=== PATIENT | female | born 2000 | race Caucasian/White ===

== ENCOUNTER → 2023-07-01 12:02 | Outpatient (CLI) | payer BC, SELFPAY ==
[2023-07-01 12:48] LABS: Influenza A - CEPHEID Flu A NEGATIVE (NEGATIVE); Influenza B - CEPHEID Flu B NEGATIVE (NEGATIVE); Respiratory Syncytial Virus Negative (Negative)
[2023-07-01 12:57] LABS: COVID-19 CEPHEID 4-PLEX PCR Negative (Negative)
== END ==
PROVIDERS: PCP Family Medicine; Visit Provider Nurse Practitioner Family
DX: R50.9 Fever, unspecified (principal); J02.9 Acute pharyngitis, unspecified
CPT/HCPCS: 0241U; 87070

== ENCOUNTER → 2024-09-16 18:35 | Outpatient (CLI) | payer BC, SELFPAY | LOC: LAB 18:35 | PROVIDERS: PCP Family Medicine; Visit Provider Chiropractor | DX: N94.89 Other specified conditions associated with female genital organs and menstrual cycle (principal) | CPT/HCPCS: 87210 ==

== ENCOUNTER → 2025-01-30 09:30 | Outpatient (CLI) | payer BC, SELFPAY ==
--- NOTE | 2025-01-30 09:31 | DI.US.S_ITS ---
PROCEDURE: US PELVIC COMPLETE
== END ==
PROVIDERS: PCP Family Medicine; Referring Provider Family Medicine; Visit Provider Family Medicine
DX: T83.32XA Displacement of intrauterine contraceptive device, initial encounter (principal); R10.31 Right lower quadrant pain; N83.8 Other noninflammatory disorders of ovary, fallopian tube and broad ligament; N88.8 Other specified noninflammatory disorders of cervix uteri
CPT/HCPCS: 76830; 87086

== ENCOUNTER → 2025-01-31 11:43 | Outpatient (CLI) | payer BC, SELFPAY ==
[2025-01-31 12:50] LABS: Appearance Urine UA CLEAR; Bilirubin Urine UA NEGATIVE (NEGATIVE); Color Urine UA YELLOW; Glucose Urine UA NEGATIVE (Negative); Ketones Urine UA NEGATIVE (NEGATIVE); Leukocyte Esterase Urine UA NEGATIVE (NEGATIVE); Nitrite Urine UA NEGATIVE (Negative); Occult Blood Urine UA TRACE-INTACT (Negative); Protein Urine UA NEGATIVE (Negative); Specific Gravity Urine UA 1.010 (1.000-1.035); Urobilinogen Urine UA 0.2 E.U./dL (0.2)
[2025-01-31 12:56] LABS: pH Urine UA 6.0 (4.5-8.0)
[2025-01-31 13:54] LABS: Culture Indicated Urine Cult Not Indicated
== END ==
PROVIDERS: PCP Family Medicine; Referring Provider Family Medicine; Visit Provider Family Medicine
DX: R10.31 Right lower quadrant pain (principal); R10.20 Pelvic and perineal pain unspecified side
CPT/HCPCS: 36415; 81001; 81025